=== PATIENT | female | born 1950 | race Caucasian/White ===

== ENCOUNTER 2023-06-30 03:57 | Emergency (ER) | payer OTHER, SELFPAY ==
[2023-06-30 03:58] VITALS: RESP 20; O2SAT 96
--- NOTE | 2023-06-30 04:01 | ED.GENADULT ---
HPI - General Adult General Time Seen by Provider: 04:15 Date Seen: 06/30/23 Chief complaint: Jaw Injury/Pain Stated complaint: jaw pain/dislocated Time Seen by Provider: 06/30/23 04:01 Source: family, RN notes reviewed and old records reviewed Mode of arrival: ambulatory Limitations: no limitations History of Present Illness HPI narrative: 73y/o female with history of dementia, presents with jaw pain. Patient has a history of jaw locking, has been seen three times in the past couple weeks for this. Family reports that she was seen yesterday at an outside facility yesterday for this, jaw was reduced and directed to follow-up at another facility due to no ENT or dental service in [place]. A couple hours ago yawned and unable to close mouth. [facility] Medical History (Updated 06/30/23 @ 04:33 by Huseyin Quarles MD) Alzheimer's dementia ?G30.9 - Alzheimer's disease, unspecified (ICD-10) ?F02.80 - Dementia in other diseases classified elsewhere, unspecified severity, without behavioral disturbance, psychotic disturbance, mood disturbance, and anxiety (ICD-10) Social History Smoking Status: Never smoker Second hand tobacco smoke exposure: No How often do you have a drink containing alcohol: never AUDIT-C Alcohol total score: 0 Non-prescribed substance use: denies use Exam Narrative: Exam Narrative: General: well nourished , NAD Head: Atraumatic and normocephalic ENT: External ears and external nose are normal, mouth held open, unable to close Eyes: Conjunctiva clear, pupils are equal reactive, external ocular motions are intact Neck: Full spontaneous range of motion of the neck Lungs: No respiratory distress Musculoskeletal: No tenderness or deformity Neurologic: No gross focal neurologic deficits Skin: No rashes Psych: Mood and affect are appropriate Const: Vital Signs, click to edit/add: Vital Signs - 24 hr 06/30/23 03:58 06/30/23 04:13 Temperature 98.2 F Pulse Rate [Right Pulse Oximeter] 84 Respiratory Rate 20 Respiratory Rate [ Jaw] 20 Blood Pressure [Ri ght Upper Arm] 143/73 H Pulse Oximetry 96 Oxygen Delivery Me thod Room Air Course Course ED Course: Patient seen and examined. Patient with history of dementia and sounds like recurrent jaw dislocations. On initial exam, jaw is open and unable to close, mucous membranes are dry. No respiratory distress. Jaw was reduced using downward pressure with click and patient able to open and close without difficulty after this. I did speak with Dr. Marley, emergency department physician at [facility] who saw the patient earlier tonight, reports he did do a CT scan which demonstrated shallow TMJ predisposing patient to be dislocation. Will discuss with [facility] ENT for outpatient follow-up for further evaluation Procedure; jaw dislocation reduction. Risks and benefits discussed with family, verbal consent was obtained with excel expert. Comes replace intraorally along the doing just patient has had extractions of most of her teeth. Gentle downward pressure was applied with subsequent posterior displacement. Palpable click was felt and patient was able to open and close the jaw. Patient tolerated this well. Reevaluation(s) Time of Reevaluation #1: 04:47 Reevaluation #1: Care discussed with on-call dentistry at [facility]. Patient will be given phone number for follow-up and can follow-up with [facility] or [place]. Vital Signs Vital signs: Initial Vital Signs Respiratory Rate 20 06/30/23 03:58 Vital Signs Respiratory Rate 20 06/30/23 03:58 Temperature 98.2 F 06/30/23 04:13 Pulse Rate 84 06/30/23 04:13 Respiratory Rate 20 06/30/23 04:13 Blood Pressure 143/73 H 06/30/23 04:13 Pulse Oximetry 96 06/30/23 04:13 Oxygen Delivery Method Room Air 06/30/23 04:13 Discharge Plan Discharge Clinical Impression: Dislocation closed, jaw, Dementia Patient Disposition: Home w/ Parent or Adult Condition: Improved Instructions: Jaw Dislocation (ED) Additional Instructions: Soft diet for 48 hour Avoid opening the jaw more than 1 inch to yawn, talk, or eat Follow-up with an oral surgeon [facility] [phone]- call and request an appointment for chronic TMJ dislocation. Clinic at [address] [address] Patient jaw dislocates again, follow-up at: [facility] [address] [facility] [address] Activity Level: No Restrictions Discharge Diet: Full Liquid Stand Alone Forms: [facility] [employer] Software Info Instructions
[2023-06-30 04:13] VITALS: BP 143/73; PULSE 84; RESP 20; TEMP 36.8; O2SAT 96; BMI 32.0
[2023-06-30 05:00] VITALS: BP 135/74; PULSE 79; RESP 20; TEMP 36.8; O2SAT 96
[2023-06-30 05:23] VITALS: BP 135/74; PULSE 79; RESP 20; TEMP 36.8
== END 2023-06-30 05:24 | disposition home or self-care (01) ==
LOC: ED 04:56
PROVIDERS: Emergency Provider Family Medicine
DX: S03.03XA Dislocation of jaw, bilateral, initial encounter (principal)
CPT/HCPCS: 21480; 99283; 99284

== ENCOUNTER 2023-07-01 00:38 | Emergency (ER) | payer OTHER, SELFPAY ==
[2023-07-01] VITALS (8 sets, daily range): BP systolic 107–140; BP diastolic 61–70; PULSE 60–74; RESP 16–20; TEMP 36.7; O2SAT 94–97; BMI 32.8
[2023-07-01] MEDS: fentaNYL 100 MCG/2 ML inj 25 MCG IVP (01:00)
[2023-07-01] MEDS: MIDAZOLAM HCL 1 MG/ML inj 2 MG IVP (01:02)
[2023-07-01] MEDS: 0.9 % SODIUM CHLORIDE 250 ml 250 ML IV (01:11)
--- NOTE | 2023-07-01 01:14 | ED.GENADULT ---
HPI - General Adult General Time Seen by Provider: 00:48 Date Seen: 07/01/23 Chief complaint: Jaw Injury/Pain Stated complaint: jaw problem Time Seen by Provider: 07/01/23 00:48 Source: patient, family, RN notes reviewed, old records reviewed and heating and cooling systems engineer Mode of arrival: wheelchair Limitations: altered mental status (Patient has dementia, is nonverbal with me.) History of Present Illness HPI narrative: This 73-year-old female is returning to the ER with a jaw dislocation. This happened within the hour of arrival. This is her 4th episode in 24 hours. She was seen last night, reportedly did fine all day. She is reportedly yawning and dislocating. No trauma. Patient has significant dementia. Related Data Allergies Allergy/AdvReac Type Severity Reaction Status Date / Time No Known Drug Allergies Allergy Verified 07/01/23 00:52 Review of Systems Narrative: As per HPI. [facility] Medical History (Updated 07/01/23 @ 01:25 by Sylvia Brown MD) Sepsis associated hypotension ?A41.9 - Sepsis, unspecified organism (ICD-10) ?I95.9 - Hypotension, unspecified (ICD-10) Community acquired pneumonia ?J18.9 - Pneumonia, unspecified organism (ICD-10) Severe sepsis ?A41.9 - Sepsis, unspecified organism (ICD-10) ?R65.20 - Severe sepsis without septic shock (ICD-10) Constipation ?K59.00 - Constipation, unspecified (ICD-10) Alzheimer's dementia ?G30.9 - Alzheimer's disease, unspecified (ICD-10) ?F02.80 - Dementia in other diseases classified elsewhere, unspecified severity, without behavioral disturbance, psychotic disturbance, mood disturbance, and anxiety (ICD-10) Social History Smoking Status: Never smoker Second hand tobacco smoke exposure: No How often do you have a drink containing alcohol: never AUDIT-C Alcohol total score: 0 Non-prescribed substance use: denies use Exam Const: Vital Signs, click to edit/add: Vital Signs - 24 hr 07/01/23 00:48 07/01/23 00:48 07/01/23 01:00 Temperature 98.0 F Pulse Rate [Right Pulse Oximeter] 74 Respiratory Rate 20 Respiratory Rate [ Jaw] 18 Blood Pressure [Ri ght Upper Arm] 140/67 H Pulse Oximetry 96 96 Oxygen Delivery Me thod Room Air Oxygen Flow Rate 07/01/23 01:00 07/01/23 01:07 Temperature 98.0 F Pulse Rate [Right Pulse Oximeter] 68 Respiratory Rate 20 Respiratory Rate [ Jaw] Blood Pressure [Ri ght Upper Arm] 116/63 Pulse Oximetry 96 94 Oxygen Delivery Me thod Nasal Cannula Room Air Oxygen Flow Rate 2 Patient is alert, jaw is open, dentition in moderate to poor repair, missing some teeth. Oral mucosa well hydrated, conjugate gaze, sclera clear. Making no efforts to talk to me. Lungs are clear, good air entry, no wheezing or crackles. CV regular rate and rhythm, no murmur, normal S1-S2, no S3-S4. Attempted with some gauze pad in the sides of the mouth with a little down word gentle traction, jaw would not really locate. Did just give some gentle downward traction with patient sitting up, tried 2 different times. Was not to relocating. Reportedly went back in with this maneuver last night. We then moved patient to the bed, placed an IV. Had her on cardiac monitoring and pulse oximetry. Capnography was not working on the monitor at this time. 250 mL normal saline we were placed for IV infusion. She was given supplemental 2 L nasal cannula oxygen. She was given 1 mg IV Versed and 25 mg IV fentanyl. With this light sedation on board, patient was relaxed enough that just gentle downward traction and anterior movement for was able to relocate the jaw. Did see her opening and closing it at that point. Did place a Praful binder around her head with a little tension to try to keep her from opening her jaw too far. This patient's dementia precludes her from being able to really follow restrictions. Documenting provider has reviewed patient's vital signs: yes Course Course ED Course: Job relocated as above. Patient monitored on pulse oximetry, cardiac monitoring, supplemental oxygen until sedation was wearing off. She was discharge when post sedation criteria were met. Have stressed to them that this is going to be recurrent, the need to get the routine scheduled appointment which is outlined. Otherwise if recurrent jaw dislocation, it is recommended that she proceed to 1 of the ERs as listed last night on her discharge, this was copied into her discharge for today as well and attempted to put some clarifying statements in there for family. Vital Signs Vital signs: Initial Vital Signs Temperature 98.0 F 07/01/23 00:48 Temperature Source Temporal Artery Scan 07/01/23 00:48 Pulse Rate 74 07/01/23 00:48 Respiratory Rate 20 07/01/23 00:48 Blood Pressure 140/67 H 07/01/23 00:48 Blood Pressure Mean 91 07/01/23 00:48 Blood Pressure Position Sitting 07/01/23 00:48 Pulse Oximetry 96 07/01/23 00:48 Oxygen Delivery Method Room Air 07/01/23 00:48 Vital Signs Temperature 98.0 F 07/01/23 00:48 Pulse Rate 74 07/01/23 00:48 Respiratory Rate 20 07/01/23 00:48 Blood Pressure 140/67 H 07/01/23 00:48 Pulse Oximetry 96 07/01/23 00:48 Oxygen Delivery Method Room Air 07/01/23 00:48 Temperature 98.0 F 07/01/23 01:07 Pulse Rate 68 07/01/23 01:07 Respiratory Rate 20 07/01/23 01:07 Blood Pressure 116/63 07/01/23 01:07 Pulse Oximetry 94 07/01/23 01:07 Oxygen Delivery Method Room Air 07/01/23 01:07 Oxygen Flow Rate 2 07/01/23 01:00 Medications Administered Medications: Generic Name Dose Route Start Last Admin Trade Name Kristoferq PRN Reason Stop Dose Admin Fentanyl 25 mcg 07/01/23 00:56 07/01/23 01:00 Fentanyl 100 Mcg/2 Ml Inj IVP 07/01/23 00:57 25 mcg ONCE ONE Administration Sodium Chloride 250 mls @ 250 mls/hr 07/01/23 00:56 07/01/23 01:11 0.9 % Sodium Chloride 250 Ml IV 07/01/23 01:55 250 mls/hr .Q1H ONE Administration Midazolam HCl 2 mg 07/01/23 00:56 07/01/23 01:02 Midazolam Hcl 1 Mg/Ml Inj IVP 07/01/23 00:57 1 mg ONCE ONE Administration Discharge Plan Discharge Clinical Impression: Dislocation closed, jaw Qualifiers: Encounter type: initial encounter Qualified Code(s): S03.00XA - Dislocation of jaw, unspecified side, initial encounter Dementia Qualifiers: Dementia type: unspecified type Patient Disposition: Home w/ Parent or Adult Condition: Stable Instructions: Jaw Dislocation (ED) Additional Instructions: Soft diet for 48 hour Avoid opening the jaw more than 1 inch to yawn, talk, or eat Follow-up with an oral surgeon [facility] [phone]- call and request an appointment for chronic TMJ dislocation. Clinic at [address] [place] [id number] This is the number to call for routine follow up care for her recurrent jaw dislocation. Patient jaw dislocates again, follow-up at: Need to proceed to one of these ED's if she recurrent jaw dislocation. [facility] Emergency Department [address] [facility] Emergency Department [address] Follow Up/Referrals: Provider,Not a Local [Primary Care Provider] - Stand Alone Forms: [employer] Info Instructions
--- OUTSIDE RECORDS SUMMARY | 2023-07-01 01:38 | XMS_ITS | Clinical Summary ---
Author Name Unknown Organization [facility] [employer] Address [place], [place] [address] Care Team Providers Care Grocery Clerk Name Role Phone Norberto Saeed MD Primary Care Provider [phone] Allergies No known active allergies Medications Medication Sig Dispensed Refills Start Date End Date Status NebulizerIndications: Community acquired pneumonia, unspecified laterality Neb, neb kit x 4, reuse neb kit x 1, mask x 1, filter x 1. Frequencye: daily; Med: albuterol Length of need: 99 months 1 Device 0 08/20/2018 Active melatonin 10 mg tabIndications:Veda ia in Alzheimer's disease (HC) Take by mouth. 0 12/01/2018 Active B Complex-Lysine liqdIndications:Demen tia in Alzheimer's disease (HC) 1 dropper full daily. 1 Bottle 0 12/01/2018 Active astaxanthin 4 mg cap Take by mouth. 0 02/14/2019 Active albuterol (PROVENTIL) 0.083 % neb solutionIndications:C ommunity acquired pneumonia, unspecified laterality Inhale 3 mL via a nebulizer every 4 hours if needed. 1 box 3 04/30/2020 Active Active Problems Problem Noted Date Diagnosed Date Aspiration into airway 04/30/2020 Constipation 08/19/2018 Severe sepsis 08/18/2018 Community acquired pneumonia 08/18/2018 Sepsis associated hypotension 08/18/2018 Dementia in Alzheimer's disease 02/03/2018 Overview: Diagnosed in 2012. Encounters Date Type Department Care Team Description 06/29/2023 8:48 PM MULTIFOLD OPERATOR - 06/30/2023 1:27 AM MULTIFOLD OPERATOR Emergency [facility] [address] [place] [address] Trip Marley DO Dislocation of temporomandibular joint, initial encounter (Primary Dx) Discharge Disposition: Home Self Care 06/29/2023 11:23 AM MULTIFOLD OPERATOR - 06/29/2023 2:52 PM MULTIFOLD OPERATOR Emergency [facility] [address] [place] [address] Renzo Reyes MD Dislocation of temporomandibular joint, initial encounter (Primary Dx) Discharge Disposition: Home Self Care 06/29/2023 Travel from Last 3 Months Social History Tobacco Use Types Packs/Day Years Used Date Smoking Tobacco: Never Smokeless Tobacco: Never Tobacco Cessation:Counseling Given: Yes Alcohol Use Standard Drinks/Week Comments No 0 (1 standard drink = 0.6 oz pur e alcohol) Social Connections Answer Date Recorded Frequency of Communication with Friends and Fami ly Not on file 05/23/2021 Financial Resource Strain Answer Date R ecorded Difficulty of Paying Living Expenses Not on file 05/23/2021 Difficulty of Paying Living Expenses Not on file 05/23/2021 Sex and Gender Information Value Date Recorded Sex Assigned at Not on file Gender Identity Not on file Sexual Orientation Not on file Obstetrics History Last Filed Vital Signs Vital Sign Reading Time Taken Comments Blood Pressure 140/73 06/30/2023 12:07 AM MULTIFOLD OPERATOR Pulse 81 06/30/2023 12:07 AM MULTIFOLD OPERATOR Temperature 36.7 ??C (98.1 ??F) 06/29/2023 10:[address] Respiratory Rate 15 06/30/2023 12:07 AM MULTIFOLD OPERATOR Oxygen Saturation 94% 06/30/2023 12:07 AM MULTIFOLD OPERATOR Inhaled Oxygen Concentration - - Weight 68 kg (150 lb) 06/29/2023 8:49 PM MULTIFOLD OPERATOR Height 154.9 cm (5' 1) 06/29/2023 8:49 PM MULTIFOLD OPERATOR Body Mass Index 28.34 06/29/2023 8:49 PM MULTIFOLD OPERATOR Plan of Treatment Health Maintenance Due Date Last Done Comments COVID-19 vaccine series (#1) 1950 Tdap 02/27/1959 Hepatitis C screening for age 18-79 02/27/1966 Tetanus booster 1968 Lipids for age 45-75 02/27/1993 Zoster (shingles) series for age 50+ (1 of 2) 02/27/1998 DEXA/DXA scan for age 65+ 02/27/2013 Pneumococcal series for age 65+ (1 of 1 - PCV) 02/27/2013 BMI (ht and wt on same day) for age 18+ 02/03/2019 0 02/03/2018 Fecal testing non-DNA (FIT,F OBT,iFOBT) for age 45-75 03/24/2021 03/24/2020, 11/07/2018 Influenza for age 65+ 01/21/2023 Procedures Procedure Name Priority Date/Time Associated Diagnosis Comments CT FACIAL BONES WO STAT 06/29/2023 11 :20 PM MULTIFOLD OPERATOR EKG 12 LEAD STAT 06/29/2023 12:13 PM MULTIFOLD OPERATOR from Last 3 Months Results * CT FACIAL BONES WO (06/29/2023 11:20 PM MULTIFOLD OPERATOR) Anatomical Region Laterality Modality FACIAL BONES Computed Tomogra phy 06/29/2023 11:4 6 PM MULTIFOLD OPERATOR Impressions 06/29/2023 11:46 PM MULTIFOLD OPERATOR 1. No fracture appreciated. 2. Slightly shallow appearance to the TMJ fossa bilaterally with a dysmorphic appearance the mandibular condyles, which may predispose patient to jaw dislocation. Nonemergent outpatient MRI could be considered for further assessment if there is concern for involvement of the TMJ disc or ligamentous structures. 3. Suspect acute on chronic sinusitis. Please note that all CT scans at this facility use dose modulation, iterative reconstruction, and/or weight-based dosing when appropriate to reduce radiation dose to as low as reasonably achievable. Dictated by David Walton MD @ 06/29/2023 11:46:33 PM (Electronically Signed) Narrative 06/29/2023 11:46 PM MULTIFOLD OPERATOR For Patients: ??As a result of the 21st Century Cures Act, medical imaging exams and procedure reports are released immediately into your electronic medical record. ??You may view this report before your referring provider. ??If you have questions, please contact your health care provider. INDICATION: Locked jaw TECHNIQUE: CT maxillofacial without contrast. COMPARISON: None. FINDINGS: Bones: No acute fracture. Bilateral TMJ fossa appears slightly shallow, and there is a slightly dysmorphic appearance to the bilateral mandibular condyles. No lytic or blastic lesion. Scattered dental caries and periapical lucencies are noted. Orbits: Unremarkable. Sinuses: Chronic sinusitis. Opacification and sclerosis of the duran of the maxillary and ethmoids sinuses bilaterally and left frontal sinus. Air-fluid levels noted in the left maxillary and sphenoid sinuses. Mastoids: Partial mastoid fluid bilaterally, right greater than left. Other: No other significant abnormalities appreciated. Procedure Note David Walton MD - 06/29/2023 For Patients: As a result of the Cures Act, medical imagingexams and procedure reports are released immediately into your electronicmedical record. You may view this report before your referring provider.If you have questions, please contact your health care provider. INDICATION: Locked jaw TECHNIQUE: CT maxillofacial without contrast. COMPARISON: None. FINDINGS: Bones: No acute fracture. Bilateral TMJ fossa appears slightly shallow,and there is a slightly dysmorphic appearance to the bilateral mandibularcondyles. No lytic or blastic lesion. Scattered dental caries andperiapical lucencies are noted. Orbits: Unremarkable. Sinuses: Chronic sinusitis. Opacification and sclerosis of the duran ofthe maxillary and ethmoids sinuses bilaterally and left frontal sinus.Air-fluid levels noted in the left maxillary and sphenoid sinuses. Mastoids: Partial mastoid fluid bilaterally, right greater than left. Other: No other significant abnormalities appreciated. IMPRESSION: 1. No fracture appreciated. 2. Slightly shallow appearance to the TMJ fossa bilaterally with adysmorphic appearance the mandibular condyles, which may predisposepatient to jaw dislocation. Nonemergent outpatient MRI could be consideredfor further assessment if there is concern for involvement of the TMJ discor ligamentous structures. 3. Suspect acute on chronic sinusitis. Please note that all CT scans at this facility use dose modulation,iterative reconstruction, and/or weight-based dosing when appropriate toreduce radiation dose to as low as reasonably achievable. Dictated by David Walton MD @ 06/29/2023 11:46:33 PM (Electronically Signed) Trip Marley DO CT * EKG 12 LEAD (06/29/2023 12:13 PM MULTIFOLD OPERATOR) Interpretation Accelerated Junctional rhythm with Premature ventricular complexes or Fusion complexes Left axis deviation Incomplete right bundle branch block Nonspecific ST abnormality Abnormal ECG No previous ECGs available BEYOND NOW Ventricular Rate 70 BPM BEYOND NOW Atrial Rate 416 BPM BEYOND NOW P-R Interval ms BEYOND NOW QRS Duration 98 ms BEYOND NOW QT 384 ms BEYOND NOW QTc 414 ms BEYOND NOW P [place] degrees BEYOND NOW R [place] -48 degrees BEYOND NOW T [place] 13 degrees BEYOND NOW 06/29/2023 12:1 3 PM MULTIFOLD OPERATOR 06/29/2023 5:02 PM MULTIFOLD OPERATOR Renzo Reyes MD EKG ORD BEYOND NOW [place], [place] from Last 3 Months Advance Directives Documents on File Type Date Recorded Patient Library Consultant Expl anation Healthcare Directive 10/29/2019 020 POLST 10/10/2019 Latest Code Status on File Code Status Date Activated Date Inactivated Comments Full Code 08/18/2018 1:13 AM 08/20/2018 2:23 PM Question Answer Comments Code Status Discussion: Discussed Code Status History Code Status Date Activated Date Inactivated Comments Full Code 08/17/2018 11:54 PM 08/18/2018 1:13 AM Question Answer Comments Code Status Discussion: Discussed Care Teams Grocery Clerk Relationship Specialty Start Date End Date Norberto Saeed MD [address] [place] [address] PCP - General Family Practice 02/03/18
--- OUTSIDE RECORDS SUMMARY | 2023-07-01 01:38 | XMS_ITS | Clinical Summary ---
Author Name Unknown Organization [facility] Address [address] [place] [id number] Care Team Providers Care Food And Nutrition Services Assistant Name Role Phone Norberto Saeed MD Primary Care Provider [phone] Allergies No known active allergies Medications Medication Sig Dispensed Refills Start Date End Date Status melatonin 3 mg oral Cap Take 3 mg by mouth at bedtime. 0 Active albuterol, conc: 2.5 mg/3 mL, (PROVENTIL, VENTOLIN) Inhl nebulizer solution Nebulize 2.5 mg every 4 (four) hours as needed for Shortness of breath or Wheezing. 0 Active Active Problems Problem Noted Date Diagnosed Date Pneumonia - Possible Aspiration 07/23/2019 Severe sepsis with septic shock 07/23/2019 Alzheimer's dementia without behavioral disturba nce 07/23/2019 Normocytic anemia 07/23/2019 Right lower quadrant abdominal pain 07/23/2019 Family History Medical History Relation Comments No Known Problems Father No Known Problems Mother Relation Status Comments Father Mother Social History Tobacco Use Types Packs/Day Years Used Date Smoking Tobacco: Never Alcohol Use Standard Drinks/Week Comments Never 0 (1 standard drink = 0.6 oz pur e alcohol) AUDIT-C Answer Date Recorded Q1: How often do you have a drink containing alc ohol? Never 07/23/2019 Average Number of Drinks Not on file 020 Frequency of Binge Drinking Not on file 06/2019 Sex and Gender Information Value Date Recorded Sex Assigned at Not on file Gender Identity Not on file Sexual Orientation Not on file Last Filed Vital Signs Vital Sign Reading Time Taken Comments Blood Pressure 113/63 07/25/2019 3:00 PM OCCUP THERAPIST Pulse 72 07/25/2019 3:00 PM OCCUP THERAPIST Temperature 36.8 ??C (98.2 ??F) 07/25/2019 3:00 PM CS T Respiratory Rate 18 07/25/2019 3:00 PM OCCUP THERAPIST Oxygen Saturation 100% 07/25/2019 3:00 PM OCCUP THERAPIST Inhaled Oxygen Concentration - - Weight 71.5 kg (157 lb 10.1 oz) 07/25/2019 5:51 AM OCCUP THERAPIST Height 154.9 cm (5' 1) 07/23/2019 2:00 AM OCCUP THERAPIST Body Mass Index 29.78 07/23/2019 2:00 AM OCCUP THERAPIST Plan of Treatment Health Maintenance Due Date Last Done Comments Colonoscopy 1950 Dexa Scan 1950 Hepatitis C Screening 1950 Lipid Screening 1950 Mammogram Screening 1950 COVID-19 Vaccine (#1) 1950 Depression Assessment (PHQ-2) 02/27/1949 Adult Tetanus Booster 02/27/1967 Zoster Vaccine (1 of 2) 02/27/1998 RSV (1 - 1-dose 60+ series) 2008 Pneumococcal 65+ (1 of 1 - PCV) 02/27/2013 Yearly Review of HCD 07/21/2020 07/22/2019 Influenza Vaccine (#1) 2023 Advance Directives For more information, please contact: [phone] Latest Code Status on File Code Status Date Activated Date Inactivated Comments DNAR/DNI 07/23/2019 2:47 AM 07/25/2019 10:20 PM Question Answer Comments How was code status determined? Family Code Status History Code Status Date Activated Date Inactivated Comments Full Code 07/23/2019 1:40 AM 07/23/2019 2:47 AM Question Answer Comments How was code status determined? Physician Determ [facility] Care Teams Food And Nutrition Services Assistant Relationship Specialty Start Date End Date Norberto Saeed MD [address] [place] [address] PCP - General 07/23/19
--- OUTSIDE RECORDS SUMMARY | 2023-07-01 01:38 | XMS_ITS | Referral Summary ---
Author Name Unknown Organization [facility] Address [address] [place] [id number] Care Team Providers Care Cementer Machine Name Role Phone Norberto Saeed MD Primary Care Provider [phone] Allergies No known active allergies Medications Medication [...] 07/23/2019 Right lower quadrant abdominal pain 07/23/2019 Social History Tobacco Use Types Packs/Day Years [...] Comments Blood Pressure 113/63 07/25/2019 3:00 PM [employer] Pulse 72 07/25/2019 3:00 PM [employer] Temperature 36.8 ??C (98.2 ??F) 07/25/2019 3:00 PM CS T Respiratory Rate 18 07/25/2019 3:00 PM [employer] Oxygen Saturation 100% 07/25/2019 3:00 PM [employer] Inhaled Oxygen Concentration - - Weight 71.5 kg (157 lb 10.1 oz) 07/25/2019 5:51 AM [employer] Height 154.9 cm (5' 1) 07/23/2019 2:00 AM [employer] Body Mass Index 29.78 07/23/2019 2:00 AM [employer] Plan of Treatment Not on file Advance Directives For more information, please contact: [phone] Latest Code Status on File Code Status Date Activated Date Inactivated Comments DNAR/DNI 07/23/2019 2:47 AM 07/25/2019 10:20 PM Question Answer Comments How was code status determined? Family Code Status History Code Status Date Activated Date Inactivated Comments Full Code 07/23/2019 1:40 AM 07/23/2019 2:47 AM Question Answer Comments How was code status determined? Physician [facility] ined Care Teams Cementer Machine Relationship Specialty Start Date End Date Norberto Saeed [place] [address] PCP - General 07/23/19
== END 2023-07-01 01:50 | disposition home or self-care (01) ==
PROVIDERS: Emergency Provider Family Medicine
DX: S03.03XA Dislocation of jaw, bilateral, initial encounter (principal)
CPT/HCPCS: 21480; 94761; 96374; 96375; 99283; J2250; J3010; J7050